=== PATIENT | male | born 1950 | race Caucasian/White ===

== ENCOUNTER 2017-03-26 22:48 | Emergency (ER) | payer MEDICARE, OTHER ==
[~2017-03-26] VITALS: Ht 185.4 cm; Wt 107.5 kg
[~2017-03-26 22:48] MED LIST: KLONOPIN0.5 MG ORAL; LISINOPRIL5 MG ORAL; METOPROLOL SUCC25 MG ORAL; OXYCODONE HCL5 M2 ORAL; QUETIAPINE FUM100 MG ORAL; XARELTO10 MG ORAL
[2017-03-26 23:00] VITALS: BP 99/64
[2017-03-26] MEDS ORDERED: LORazepam Inj 2mg/ml 1ml IV ONE (23:00)
[2017-03-26] MEDS ORDERED: Solu-MEDROL 125mg Inj IVP ONE (23:00)
[2017-03-26] MEDS ORDERED: Ipratropium 0.02% Inh Soln 2.5ml UD HHN ONE (23:00)
--- NOTE | 2017-03-26 23:03 | Emergency Room Report ---
History of Present Illness General Chief Complaint: Dyspnea/Respdistress Source: Patient Present Illness HPI The patient presents with dyspnea. He's been using a nebulizer at home. He still is dyspneic. He is coughing up clear and also brownish phlegm. He denies any fevers or chills. Denies any chest pain. Is not his worst attack. Is not taking prednisone at this time. BLANDON. In addition he has a opiate dependence. He took 40 mg of methadone yesterday and 30 mg today. He's feeling sweaty, anxious, nauseated. He denies any pains at this time. Is planning on going to [facility] for [facility]. Moves bowels without problems. No SI or HI, but feels embarrassed about dependence. Still smoking. No bleeding problems. No rashes. Allergies: Coded Allergies: No Known Allergies (Unverified , 03/26/17) Patient History Past Medical History: see triage record Past Surgical History: pacemaker Social History: Reports: smoking Social History Narrative At home Reviewed Nursing Documentation: PMH: Agreed, PSxH: Agreed Nursing Documentation-PMH Hx Cardiac Problems: Yes - pacemaker 2012 Hx Hypertension: Yes Hx COPD: Yes Hx Cancer: No Hx Gastrointestinal Problems: No Hx Neurological Problems: No Review of Systems All Other Systems: negative except mentioned in HPI Physical Exam Vital Signs Date Time Temp Pulse Resp B/P Pulse Ox O2 Delivery O2 Flow Rate FiO2 03/26/17 22:54 93 25 140/80 94 Room Air Sp02 EP Interpretation: reviewed, abnormal - Interpreted as low by me General Appearance: well appearing, GCS 15, mild distress Head: normocephalic Eyes: bilateral eye PERRL, bilateral eye normal inspection ENT: moist mucus membranes Neck: supple Respiratory: wheezing, expiration, inspiration Cardiovascular #1: regular rate, rhythm Cardiovascular #2: 2+ radial (R) Gastrointestinal: normal inspection, normal bowel sounds, non tender, no mass, non-distended Musculoskeletal: back normal, gait/station normal, normal range of motion Neurologic: alert, oriented x3, grossly normal Psychiatric: mood/affect normal Skin: normal inspection, warm/dry, other - sallo Medical Decision Making Diagnostic Impression: Primary Impression: COPD exacerbation Additional Impressions: AMA Opiate dependence Qualified Codes: F11.288 - Opioid dependence with other opioid-induced disorder ER Course Pt with significant dyspnea. Ddx: ami, copd, bronchitis, pneumothorax, pe, pna. In mild distress. Needs immediate breathing treatments and solumedrol. w /u with EKG, labs and CXR. Will also treat withdrawal sy with ativan. Labs sig for elevated WBC. (Urine not given) CXR with bullous emphysema, no infiltrate. Improved but needing continued treatment. Patient insists on leaving to go to [facility] tomorrow. I discussed risks of with patient. Laboratory Tests Test 03/26/17 22:55 White Blood Count 13.9 K/UL (4.8-10.8) H Red Blood Count 4.61 M/UL (4.70-6.10) L Hemoglobin 14.6 G/DL (14.2-18.0) Hematocrit 42.5 % (42.0-52.0) Mean Corpuscular Volume 92 FL (80-99) Mean Corpuscular Hemoglobin 31.7 PG (27.0-31.0) H Mean Corpuscular Hemoglobin Concent 34.3 G/DL (32.0-36.0) Red Cell Distribution Width 13.2 % (11.6-14.8) Platelet Count 197 K/UL (150-450) Mean Platelet Volume 8.4 FL (6.5-10.1) Neutrophils (%) (Auto) 77.0 % (45.0-75.0) H Lymphocytes (%) (Auto) 14.6 % (20.0-45.0) L Monocytes (%) (Auto) 6.2 % (1.0-10.0) Eosinophils (%) (Auto) 1.4 % (0.0-3.0) Basophils (%) (Auto) 0.9 % (0.0-2.0) Prothrombin Time 10.4 SEC (9.30-11.50) Prothrombin Time INR 1.0 (0.9-1.1) PTT 29 SEC (23-33) Sodium Level 136 mEQ/L (135-145) Potassium Level 4.2 mEQ/L (3.4-4.9) Chloride Level 96 mEQ/L (98-107) L Carbon Dioxide Level 24 mEQ/L (20-30) Anion Gap 16 (5-15) H Blood Urea Nitrogen 23 mg/dL (7-23) Creatinine 0.9 mg/dL (0.7-1.2) Estimate Glomerular Filtration Rate > 60 mL/min (>60) Glucose Level 120 mg/dL (74-106) H Lactic Acid Level 1.20 mmol/L (0.66-2.22) Calcium Level 9.8 mg/dL (8.6-10.2) Total Bilirubin 0.5 mg/dL (0.0-1.2) Aspartate Amino Transferase (AST) 29 U/L (5-40) Alanine Aminotransferase (ALT) 22 U/L (3-41) Alkaline Phosphatase 82 U/L (40-129) Total Creatine Kinase 282 U/L (38-174) H Troponin I < 0.30 ng/mL (<=0.30) Pro-B-Type Natriuretic Peptide 295 pg/mL (0-125) H Total Protein 7.3 g/dL (6.6-8.7) Albumin 4.2 g/dL (3.5-5.2) Globulin 3.1 g/dL Albumin/Globulin Ratio 1.3 (1.0-2.7) EKG Diagnostic Results Rate: normal Rhythm: NSR ST Segments: no acute changes - Right bundle-branch block Rhythm Strip Diag. Results EP Interpretation: yes Rhythm: NSR, no PVC's, no ectopy Chest X-Ray Diagnostic Results EP Interpretation: Yes Findings: no effusion, no pneumothorax, other - bullae, COPD, no infiltrate Number of Views: 1 Last Vital Signs Date Time Temp Pulse Resp B/P Pulse Ox O2 Delivery O2 Flow Rate FiO2 03/27/17 01:10 102 18 117/59 96 Room Air 03/26/17 23:00 98.2 Status: improved Disposition: AGAINST MEDICAL ADVICE Condition: Improved Scripts Ondansetron Odt* (ZOFRAN ODT*) 4 Mg Tab.rapdis 4 MG ORAL Q8HR Y for Nausea & Vomiting, #6 TAB 0 Refills Prov: Eber Weinberg M.D. 03/27/17 Prednisone* (PREDNISONE*) 20 Mg Tablet 20 MG ORAL DAILY, #5 TAB 0 Refills Prov: Eber Weinberg M.D. 03/27/17 Albuterol Sulfate* (ALBUTEROL SULFATE MDI*) 8.5 Gm Hfa.aer.ad 2 PUFF INH Q6H, #1 INH 0 Refills Prov: Eber Weinberg M.D. 03/27/17 Albuterol Sulfate* (ALBUTEROL SULFATE HHN*) 2.5 Mg/3 Ml Vial.neb 3 ML INH Q6H Y for Shortness of Breath, #60 EA 0 Refills Prov: Eber Weinberg M.D. 03/27/17 Eber Weinberg M.D. March 26, 2017 23:03
[2017-03-26] MEDS: Albuterol ud Inhalation HHN SCH ×2 (23:11→23:46)
[2017-03-26 23:19] LABS: BASOPHILS % (AUTO) 0.9 % (0.0-2.0); EOSINOPHILS % (AUTO) 1.4 % (0.0-3.0); LYMPHOCYTES % (AUTO) 14.6 % (20.0-45.0); MEAN CORPUSCULAR HEMOGLOBIN 31.7 PG (27.0-31.0); MEAN CORPUSCULAR HGB CONC 34.3 G/DL (32.0-36.0); MEAN CORPUSCULAR VOLUME 92 FL (80-99); MEAN PLATELET VOLUME 8.4 FL (6.5-10.1); MONOCYTES % (AUTO) 6.2 % (1.0-10.0); PLATELET COUNT 197 K/UL (150-450); RED BLOOD COUNT 4.61 M/UL (4.70-6.10); RED CELL DISTRIBUTION WIDTH 13.2 % (11.6-14.8); WHITE BLOOD COUNT 13.9 K/UL (4.8-10.8)
[2017-03-26 23:29] LABS: PROTHROMBIN TIME 10.4 SEC (9.30-11.50)
[2017-03-26 23:31] LABS: TROPONIN I < 0.30 ng/mL (<=0.30)
[2017-03-26 23:32] LABS: ALANINE AMINOTRANSFERASE 22 U/L (3-41); ALBUMIN/GLOBULIN RATIO 1.3 (1.0-2.7); ANION GAP 16 (5-15); ASPARTATE AMINO TRANSFERASE 29 U/L (5-40); CALCIUM 9.8 mg/dL (8.6-10.2); CARBON DIOXIDE 24 mEQ/L (20-30); CHLORIDE 96 mEQ/L (98-107); CREATININE 0.9 mg/dL (0.7-1.2); GLOMERULAR FILTRATION RATE > 60 mL/min (>60); HEMOLYSIS 6; POTASSIUM 4.2 mEQ/L (3.4-4.9); SODIUM 136 mEQ/L (135-145); TOTAL PROTEIN 7.3 g/dL (6.6-8.7)
[2017-03-27] VITALS: BP 127/63
[2017-03-27] MEDS ORDERED: PREDNISONE20 MG ORAL (01:02)
[2017-03-27] MEDS ORDERED: ALBUTEROL2.5 MG/3 M INH (01:02)
[2017-03-27] MEDS ORDERED: ZOFRAN ODT4 MG ORAL (01:02)
[2017-03-27] MEDS ORDERED: ALBUTEROL SULF8.5 GM INH (01:02)
[2017-03-27 01:10] VITALS: BP 117/59
--- NOTE | 2017-03-27 09:45 | Diagnostic Imaging Report ---
Indication: Chest Pain Comparison: None A single view chest radiograph was obtained. Findings: Bullous disease with hyperlucency noted in upper lung umñoz. Generalized hyperinflation of the lungs is present. There is no definite infiltrate/consolidation. Pacemakers present. Bones are osteopenic. Heart size is normal. Impression: Pulmonary emphysema/COPD. Pacemaker Osteoporosis
--- NOTE | 2017-03-27 15:47 | Cardiology Report ---
APPROVED REPORT EKG Measurement Heart [id number] CO [id number] Normal sinus rhythm v pacing
== END 2017-03-27 01:10 | disposition left against medical advice (07) ==
LOC: EMR 23:05 → EDBEDREQ 03-27 00:20 → EMR 03-27 01:10
DX: J44.1 Chronic obstructive pulmonary disease with (acute) exacerbation (principal); F11.288 Opioid dependence with other opioid-induced disorder; R11.0 Nausea; F17.200 Nicotine dependence, unspecified, uncomplicated; Z95.0 Presence of cardiac pacemaker; I10 Essential (primary) hypertension; I45.10 Unspecified right bundle-branch block; R23.8 Other skin changes
CPT/HCPCS: 36415; 71010; 80053; 82550; 83605; 83880; 84484; 85025; 85610; 85730; 87040; 93005; 94640; 94664; 96374; 96375; 99284; J2405; J2930